=== PATIENT | male | born 1935 | race Caucasian/White ===

== ENCOUNTER 2016-06-22 12:05 | Inpatient (IN) | payer OTHER, BC ==
[~2016-06-22] VITALS: Ht 170.2 cm; Wt 76.0 kg
--- NOTE | ~2016-06-22 | HC ---
[facility] [place] [address] CONSULTATION Name: SANTA SOLIS Room #: 213-P [facility] IN M.R.#: [id number] Admission: 06/22/16 Attend Phys: Iain Villafuerte MD, Discharge: Date of : 37 Report #: [id number] THIS REPORT FOR: //name// CC: Iain Solis DATE OF SERVICE: 06/23/2016 INFECTIOUS DISEASE CONSULTATION ATTENDING PHYSICIAN: Iain Villafuerte M.D. REASON FOR CONSULTATION: Possible urosepsis. HISTORY OF PRESENT ILLNESS: The patient is a 80-year-old white man who is transferred to [facility] from [facility] Emergency Department where he is initially evaluated after having suffered a syncopal episode and trauma to the left wrist. The initial workup included a urinalysis that reveals some pyuria and bacteriuria as well as a white blood cell count of 20,300 with 13% bands, 60% neutrophils. The patient reports he has never experienced syncopal episodes before and adds that the patient had been feeling extremely cold, unable to warm up the day before admission. During the Emergency Room evaluation, patient had quite a bit of difficulty passing urine, but he was able to give us a small sample. I suspect urine culture was obtained. The patient did receive some Levaquin in the Emergency Room and when I evaluated on the computer, this patient was started on Zosyn 3.375 grams IV every 6 hours. At present, the patient is feeling significantly better almost back to par and voices no complaints, has already visited with Dr. Villafuerte who suspects the patient could be discharged home tomorrow. DRUG ALLERGIES: None listed. MEDICATIONS: The patient is on ferrous sulfate 325 mg daily, clopidogrel bisulfate 75 mg p.o. daily, amiodarone 200 mg p.o. daily, losartan 25 mg p.o. daily, prednisone 10 mg daily, gabapentin 100 mg t.i.d., KCl 20 mEq b.i.d., atorvastatin 40 mg at bedtime., metoprolol 12.5 b.i.d., docosahexaenoic acid 1000 mg p.o. b.i.d., Zosyn 3.375 grams IV every 6 hours, p.r.n. acetaminophen. PAST MEDICAL HISTORY: History of coronary artery disease, ischemic cardiomyopathy, decreased ejection fraction and status post placement of an ICD on 02/03/[address] Tyler Saldivar. The patient also relates he had an invasive rectal adenocarcinoma for which he undergoes radiation therapy. Ever since his hospitalization in 2014, the patient had significant swelling of the [address] [place] [address] CONSULTATION Name: SANTA SOLIS Room #: 213-P [facility] IN .R.#: [id number] Admission: 06/22/16 Attend Phys: Iain Villafuerte MD, Discharge: Date of : 37 Report #: [id number] scrotum. No clear explanation as to the reason for this problem is given to me today. The patient has had a flu type problem years ago and at that point in time developed what he calls arthritis and he receives treatment with steroids large doses and Dr. Solis had been tapering the prednisone, currently on 10 mg daily. The patient has also hypertension, dyslipidemia, hypothyroidism, and appendectomy. SOCIAL HISTORY: . Grown children. His son is Dr. Parker Solis. No tobacco. No alcohol. REVIEW OF SYSTEMS: Essentially noncontributory besides the syncopal episodes and joint aches and pains, some left wrist pain from the recent fall. PHYSICAL EXAMINATION: GENERAL: This is a well-developed man, not toxic looking, no distress. VITAL SIGNS: Temperature 99 on admission, pulse 73, respirations 18, BP 124/64. Height 5 feet 7 inches, weight 171.4 pounds. HEENMT: Head normocephalic, atraumatic. Pupils reactive. Mouth: No thrush. NECK: Supple, no thyromegaly. LUNGS: Clear to auscultation. HEART: S1, S2. No gallop or murmur. ABDOMEN: Soft, no masses or megaly. GENITOURINARY: Scrotum significantly swollen with edematous changes and rather symmetrical, the whole thing does not appear to be a hernia. RECTAL: Deferred. EXTREMITIES: Revealed trace pretibial edema. NEUROLOGIC: Grossly within normal limits. LABORATORY DATA: At the referring Emergency Room, the patient had a urinalysis that revealed specific gravity of 1.010, pH 5.5, 2+ leukocyte esterase. The microscopic exam revealed 6-25 wbc's per HPF, 4-25 wbc's per HPF, many bacteria. Culture was obtained, results are pending and Parker, his nurse, at [facility] today is trying to get those results. The serum lactate was normal, the WBC 20,300, hemoglobin 11.9 g/dL, platelets 118,000; decreased white blood cell count, differential reveals 60% neutrophils and 13% bands. Glucose 90, BUN 38, creatinine 1.3, sodium 142, potassium 4.3, chloride 104. CO2 of 20.9, albumin 4.7 g/dL. Liver enzymes normal. CK 3 ng/mL. Laboratory data here at [facility] reveal a BUN of 26, creatinine 1.4, alkaline phosphatase 21, SGPT 24, albumin down to 3.3 g/dL. Troponin normal. NT-proBNP elevated at 2627. The white blood cell count yesterday was 14,700 and today is 10,100. The platelets 105,000 yesterday, dropped to 85,000 today. Note is made that the patient had been thrombocytopenic previously as far back as July 2014. RADIOLOGY EVALUATION: Chest x-ray revealed cardiomegaly, a permanent pacemaker and no acute cardiopulmonary process. [facility] [address] [place] [address] CONSULTATION Name: SOLISSANTA L Room #: 213-P [facility] IN [facility].#: [id number] Admission: 06/22/16 Attend Phys: Iain Villafuerte MD, Discharge: Date of : 37 Report #: [id number] ASSESSMENT: 1. Syncopal episode of undetermined etiology, mild trauma, left wrist. 2. Possible urinary tract infection. 3. Ischemic cardiomyopathy. 4. Status post automatic implantable cardioverter-defibrillator. 5. History of rectal cancer treated with radiation therapy. 6. Leukocytosis, improving. 7. Thrombocytopenia, intermittent - chronic, undetermined etiology. SUGGESTIONS AND RECOMMENDATIONS: We will try to obtain urine culture from referring hospital and for time being, we will continue with Zosyn. We will decrease dose to 3.37 grams IV every 8 hours, suspect can switch to oral antibiotic in the morning and make plans for discharge. Dr. Villafuerte, thank you for requesting my suggestions in the care of your patient and I will continue to follow him along with you. <ELECTRONICALLY SIGNED> By: Daniel Saldivar MD 06/24/16 1104 [id number] [id number] Daniel Saldivar MD /nt
--- NOTE | ~2016-06-22 | EKG ---
[place] [address] [facility] [place] [address] ELECTROCARDIOGRAM REPORT Name: SANTA SOLIS Room #: 213-P ADM IN M.R.#: [id number] Admission: 06/22/16 Attend Phys: Iain Villafuerte MD, Discharge: Date of : 37 Report #: [id number] THIS REPORT FOR: //name// [facility] Test Date: 2016-06-22 Test Time: 17:31:18 Pat Name: SANTA SOLIS Department: Room: 213 P Gender: M Corporate Librarian: Fredis WOO : 1935 Requested By: Iain Villafuerte Order Number: [id number] MD: Tu Lawler Measurements Intervals [place] Rate: 77 P: 32 PA: 213 QRS: -21 QRSD: 125 T: 130 QT: 406 QTc: 460 Interpretive Statements Sinus rhythm Borderline prolonged PA interval Nonspecific intraventricular conduction delay Poor R-wave progression Inferior infarct, age indeterminate No previous ECG available for comparison Electronically Signed On 06-23-2016 9:13:23 CDT by Tu Lawler [email or web address] <ELECTRONICALLY SIGNED> By: Tu Lawler MD, [facility] [id number] Tu Lawler MD, [facility] /EPI
--- NOTE | ~2016-06-22 | D ---
[facility] [place] [address] DISCHARGE SUMMARY Name: SANTA SOLIS Johnna Room #: 213-P [facility] IN M.R.#: [id number] Admission: 06/22/16 Attend Phys: Iain Villafuerte MD, Discharge: 06/24/16 Date of : 37 Report #: [id number] THIS REPORT FOR: //name// CC: Iain Villafuerte [facility] COURSE: The patient is a 80-year-old male who was transferred here from [facility] Emergency Room. He looked to have impending urosepsis, a question of complex cardiac history with a moderately severe ischemic cardiomyopathy and left main and LAD stents placed in 2014. No significant recurrent heart failure issues. Borderline hypotensive. Treated with IV Levaquin in [place], then placed on IV Zosyn here initially. Infectious disease saw the patient and waiting for the urine culture from [facility], placed him on piperacillin and tazobactam and has continued him home medications; Plavix 75, losartan 25, prednisone, gabapentin, atorvastatin 40 and metoprolol tartrate 12.5 b.i.d. No further hypotension. His white count initially 22,000, now down to 10,000. His creatinine is 1.4 and potassium 4.2. H and H 10.2 and 29.6. He had a significant bandemia at the [facility], but the bands are now normal. Sed rate is 30. CRP 49.2, but these would be more of an acute phase reacting here with his impending infection. He is up and ambulating. He feels well. He is hemodynamically stable. He will be discharged to home on the home medications as I stated. The antibiotic choice will be up to infectious disease once they obtain the urine culture. DISCHARGE DIAGNOSES: 1. Urosepsis with elevated white count and bandemia. 2. Coronary artery disease. 3. Moderate ischemic cardiomyopathy with functional class II. 4. Pulmonary hypertension. 5. History of ventricular tachycardia with implantable cardioverter defibrillator placement and continued amiodarone. The pacemaker ICD was interrogated. No significant events noted. Followup is scheduled in 3 months in my office. Follow up with Dr. Saldivar for infectious disease and will call with any issues. Thank you for asking me to assist in the care of this patient. <ELECTRONICALLY SIGNED> By: Iain Villafuerte MD, FACC 06/28/16 0904 0937 1024 Iain Villafuerte MD, FACC /nt
--- NOTE | ~2016-06-22 | H ---
[facility] [place] [address] HISTORY AND PHYSICAL Name: SANTA SOLIS Room #: 213-P [facility] IN ..#: [id number] Admission: 06/22/16 Attend Phys: Iain Villafuerte MD, Discharge: 06/24/16 Date of : 37 Report #: [id number] THIS REPORT FOR: //name// CC: Iain Jones DATE OF SERVICE: 06/22/2016 HISTORY OF PRESENT ILLNESS: A 80-year-old male well known to myself, admitted here and transferred from [facility] Emergency Room where he had presented with a near syncopal event, possibly had some bowel and bladder issues, felt dizzy and presyncopal. According to his , found him down the bathroom. He had been quite stable from my perspective and is quite sick a couple of years ago with myocardial infarction and severe 3-vessel coronary disease and anterior septal infarct, EF has been 30-35% with an old inferior infarct, but he has been stable. He had drug-eluting stent placed to the left main LAD and his EF had improved. His cardiovascular status has been relatively stable. I saw him in April in the office. Echo Doppler in April revealed an EF of 30-35%, a PA pressure of 60, severe biatrial dilatation. This actually had slightly improved. Nuclear stress testing also in April did not reveal significant ischemia, some inferior septal infarct was noted and the ejection fraction was 31% by nuclear. He has been functional class 1-2. He also has a pacer defibrillator which was interrogated and doing well. He is VVI mode, I should state there is an ICD in place, no events were noted. I will re-interrogate this in the morning. HOME MEDICATIONS: Have been iron, gabapentin, potassium, prednisone, metoprolol 12.5 b.i.d., folic acid, amiodarone 200, atorvastatin 40, Plavix 75, levothyroxine, losartan 25, and omeprazole. PAST MEDICAL HISTORY: Positive for coronary artery disease with coronary stents, ischemic cardiomyopathy, history of VT, ICD placement, hypertension, hypercholesterolemia, hypothyroidism, and appendectomy. SOCIAL HISTORY: He is . His son is Eric Parker Solis in [place]. The patient lives in [place]. He has 3 children. No current alcohol or tobacco use. Quit tobacco 20 years ago. LABORATORY DATA: Laboratory work from [facility] and was 11 and 36, white count 20.3, white count repeat here was 14,000 without a bandemia. Creatinine was 1.3. Potassium was 4.3. Normal liver function test. Troponin 0.031, which is upper limits of normal for them. UA looked to have leukocytes and white cells. PHYSICAL EXAMINATION: [facility] [address] [place] [address] HISTORY AND PHYSICAL Name: SANTA SOLIS Room #: 213-P DIS IN M.R.#: [id number] Admission: 06/22/16 Attend Phys: Iain Villafuerte MD, Discharge: 06/24/16 Date of : 37 Report #: [id number] GENERAL: He is pleasant, alert. VITAL SIGNS: Pulse 70s, blood pressure 126/76. HEENT: Eyes reveal xanthelasmas. Pharynx is clear. NECK: Shows preserved upstrokes without JVD or bruits. LUNGS: Clear. CARDIOVASCULAR: Regular rate and rhythm, S1, S2, without murmur or gallop. ABDOMEN: Soft. No HSM or abdominal bruit. EXTREMITIES: Reveal trace edema. Distal pulses were intact. NEUROLOGIC: Nonfocal. SKIN: Warm and dry without xanthoma or ulcer. MUSCULOSKELETAL: No gross joint deformity. Generalized arthritic changes. IMAGING: EKG is sinus rhythm with an incomplete left bundle-branch block. ASSESSMENT: 1. Suspected early urosepsis with white count and bandemia. 2. Syncopal event, probable secondary to above. 3. Coronary artery disease complicated as stated above, but stable. 4. Moderate ischemic cardiomyopathy. 5. Moderate pulmonary hypertension. 6. History of ventricular tachycardic, on amiodarone with ICD. RECOMMENDATIONS AND PLAN: We will repeat the a.m. lab. We will continue home medications. We will ask Infectious Disease for their input, was given IV Levaquin and now started on Zosyn here. Cardiovascular status appears to be stable. I have discussed the above with his and children, and the patient appears to be fairly stable and I will also interrogate the device in the a.m. Thank you for asking us to assist in the care of this patient. <ELECTRONICALLY SIGNED> By: Iain Villafuerte MD, FACC 06/28/16 0904 52 222 Iain Villafuerte MD, FACC /nt
[~2016-06-22 12:05] MED LIST: ASPIR 8181 MG PO; ATORVASTATIN CA40 MG PO; AUGMENTIN 500-1 EACH PO; CARAFATE 1 GM TA1 G1 PO; COZAAR 25 MG TA25 M1 PO; EFFIENT10 MG PO; FLUCONAZOLE200 MG PO; GABAPENTIN 100100 MG PO; IRON325 PO; LEVOTHYROXIN0.137 M1 PO; LEVOTHYROXINE 0.15MG PO; LEXAPRO 10 MG T10 M1 PO; LOPRESSOR25 PO; LOVASTATIN 20 M20 MG PO; NEPHROCAPS SOFT1 CAP PO; NITROGLYCERIN0.4 MG SUBLING; NORCO 5-325 TA1 EACH PO; PACERONE 200 M200 M1 PO; PLAVIX 75 MG TA75 M1 PO; POTASSIUM20 PO; PREDNISONE 10 M10 MG PO; PRILOSEC40 MG PO; PROTONIX40 M1 PO; RESTORIL7.5 MG PO; TOPROL XL25 MG PO; TRAMADOL 50 MG50 MG PO; TRIAMCINOLONE A80 G2 TOP; TYLENOL325 MG PO; VENTOLIN HFA 1818 GM INH
[2016-06-22 18:23] LABS: HEMATOCRIT 32.6 % (42.0-52.0); HEMOGLOBIN 11.1 gm/dL (14.0-18.0); MCH 32.6 pg (26.0-34.0); MCHC 33.9 g/dL (28.0-37.0); PLATELET COUNT 105 thou/uL (150-400); RDW 23.4 % (10.5-14.5); WBC 14.7 thou/uL (4.0-11.0)
[2016-06-22 18:24] LABS: MANUAL DIFF YES
[2016-06-22 18:40] LABS: ABSOLUTE NEUTROPHILS 10.3 thou/uL (1.4-8.2); ANISOCYTOSIS 2+; HYPOCHROMASIA SLIGHT; TOTAL CELL COUNT 100
[2016-06-22 18:45] LABS: NT-PRO BRAIN NAT PEPTIDE 2627 pg/mL (<300); TROPONIN-I < 0.04 ng/mL (<0.04-0.07)
[2016-06-23 04:11] LABS: HEMATOCRIT 29.6 % (42.0-52.0); HEMOGLOBIN 10.2 gm/dL (14.0-18.0); MCH 32.6 pg (26.0-34.0); MCHC 34.5 g/dL (28.0-37.0); MCV 94.4 fL (80.0-100.0); RBC 3.14 mil/uL (4.50-6.00); RDW 23.1 % (10.5-14.5); WBC 10.1 thou/uL (4.0-11.0)
[2016-06-23 04:33] LABS: ALBUMIN 3.3 g/dL (3.4-5.0); CALCIUM 8.6 mg/dL (8.5-10.1); CREATININE 1.4 mg/dL (0.6-1.3); POTASSIUM 4.2 mmol/L (3.5-5.1); TOTAL PROTEIN 6.1 g/dL (6.4-8.2)
== END 2016-06-24 13:00 | disposition home or self-care (01) | DRG 872 ==
LOC: 2N 12:05
PROVIDERS: Internal Medicine Cardiovascular Disease
DX: A41.9 Sepsis, unspecified organism (principal); N17.9 Acute kidney failure, unspecified; I25.10 Atherosclerotic heart disease of native coronary artery without angina pectoris; I25.5 Ischemic cardiomyopathy; D72.829 Elevated white blood cell count, unspecified; D69.6 Thrombocytopenia, unspecified; E78.00 Pure hypercholesterolemia, unspecified; E03.9 Hypothyroidism, unspecified; I12.9 Hypertensive chronic kidney disease with stage 1 through stage 4 chronic kidney disease, or unspecified chronic kidney disease; N18.9 Chronic kidney disease, unspecified; I27.2 Other secondary pulmonary hypertension; I25.2 Old myocardial infarction; Z90.49 Acquired absence of other specified parts of digestive tract; Z87.891 Personal history of nicotine dependence; Z95.5 Presence of coronary angioplasty implant and graft; Z95.810 Presence of automatic (implantable) cardiac defibrillator
CPT/HCPCS: 10081

== ENCOUNTER 2016-08-08 10:49 | Inpatient (IN) | payer OTHER, BC ==
[~2016-08-08] VITALS: Ht 175.3 cm; Wt 74.9 kg
[2016-08-08] VITALS (26 sets, daily range): BP systolic 71–103; BP diastolic 40–93
--- NOTE | ~2016-08-08 | P ---
[facility] [place] [address] PROCEDURE REPORT Name: SOLISSANTA L Room #: 247-P [facility] IN M.R.#: [id number] Admission: 08/08/16 Attend Phys: Iain Villafuerte MD, Discharge: Date of : 37 Report #: [id number] THIS REPORT FOR: //name// CC: Iain Villafuerte MD [facility] Parker Solis DO DATE OF SERVICE: 08/12/2016 PROCEDURE: Incomplete colonoscopy. Patient of Dr. Iain Villafuerte and Dr. Parker Solis. INDICATION FOR PROCEDURE: The patient is having acute GI blood loss, thought to be secondary to post-polypectomy site. He had a colonoscopy about a week or 2 ago and several polyps were removed from multiple locations in the colon. GI bleeding scan indicated that it was most likely in the sigmoid region. Flexible sigmoidoscopy by Dr. Johnson earlier did not reveal the source of the bleeding. There was black stool adherent to the wall throughout the left colon. The patient has continued to bleed now and he was given a colon prep last night. He continues to pass dark red blood per rectum. It is thought that the actual GI bleeding site might be proximal to the sigmoid, so full colonoscopy is to be attempted. DESCRIPTION OF PROCEDURE: Informed consent for this procedure was obtained prior to the administration of any medication. The risks of the procedure which include bleeding, perforation, infection, complications of sedation and the possibility I could miss something have been explained to the patient and he has indicated his consent by signing. Propofol was slowly titrated before and during this procedure for patient comfort by the anesthesia service. Digital rectal exam did not reveal any abnormalities other than blood on the glove. There were no palpable masses. The patient does have an enlarged scrotum and an inguinal hernia. The Fujinon colonoscope was introduced through the anal sphincter and advanced gently to approximately 50 cm in the descending colon. I could not advance the scope farther despite multiple attempts to try to maneuver it forward with different positioning, etc. I think that his large inguinal hernia is the problem. The scope is apparently dipping down into this inguinal hernia and into the scrotum meaning that the sigmoid colon has probably traveled down into this hernia and no matter what I did, I was unable to get this straightened out with the scope and I could not advance the scope beyond 50 cm. So at this [facility] [address] [place] [address] PROCEDURE REPORT Name: SANTA SOLIS Room #: 247-P [facility] IN ..#: [id number] Admission: 08/08/16 Attend Phys: Iain Villafuerte MD, Discharge: Date of : 37 Report #: [id number] point, the procedure was terminated. I had cleaned out the entire left colon to 50 cm in the descending colon and I saw no evidence of any active bleeding occasional diverticulum that was not bleeding, but above this level, there was still blood coming down from above the 50 cm chace. Therefore, the scope was withdrawn slowly. No active bleeding seen, no blood in the distal colon now. In the rectum, normal mucosa, no bleeding in this area. Retroflex view, no abnormalities. The scope was withdrawn. The patient recovered in the room. He tolerated the procedure well, but he does have a large inguinal hernia and a piece of colon is in this inguinal hernia and he continues to have GI bleeding. I will consult Interventional Radiology to try to control the bleeding. He is probably going to have to have the surgical consult to repair this hernia and may be even reduce this hernia. Thank you very much once again for allowing me to participate in his care, Dr. Villafuerte and Dr. Solis. <ELECTRONICALLY SIGNED> By: Cira Burger DO 08/12/16 2149 1356 20 Cira Burger DO /nt
--- NOTE | ~2016-08-08 | S ---
[facility] [address] [place] [address] SURGICAL PATH RPT PROCEDURE Name: SANTA SOLIS Room #: 247-P ADM IN M.R.#: [id number] Admission: 08/08/16 Date of : 39 Discharge: Report #: [id number] Path Case #: [id number] PATHOLOGY REPORT COLLECTION DATE: 08/10/2016 RECEIVED DATE: 08/11/2016 SUBMITTING PHYS: Dr. Sky Johnson OTHER PHYS: Dr. Parker Villafuerte SPECIMEN(S) RECEIVED: A.Proximal sigmoid polyp * * * * * * * * * * * * FINAL DIAGNOSIS: Polyp, proximal sigmoid polyp, endoscopic biopsy: - Tubular adenoma. - Negative for high-grade dysplasia. PATHOLOGIST: Ayala Hogue M.D. REPORT ELECTRONICALLY SIGNED BY: Ayala Hogue M.D. DATE/TIME: 08/12/2016 17:11 * * * * * * * * * * * * GROSS PATHOLOGY: Received in formalin labeled "Santa Solis, proximal sigmoid," is a 1.3 x 0.7 x 0.4 cm polypoid piece of zamudio soft tissue. The margin is inked and the tissue is sectioned perpendicular to the margin and submitted in its entirety in cassette A1. (CAMILO; 08/11/2016) CLINICAL HISTORY: GI bleed INITIAL CPT CODE(S): A; 18935 Professional services performed by [facility] at [facility] [address] [place] [address] Technical services performed by [facility] at [address] [place] [address], [address], [place] [address]. [facility] [address] [place] [address] SURGICAL PATH RPT PROCEDURE Name: SANTA SOLIS Room #: 247-P ADM IN M.R.#: [id number] Admission: 08/08/16 Date of : 39 Discharge: Report #: [id number] Path Case #: [id number] [facility] [address] [address] PHONE: [phone] DIRECTOR: Hesham Mcleod M.D. * * * END OF REPORT * * *
--- NOTE | ~2016-08-08 | EKG ---
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: christine : 1935 Requested By: Tu Lawler Order Number: [id number] MD: Tu Lawler Measurements Intervals [place] Rate: 79 P: 48 UT: 200 QRS: -18 QRSD: 113 T: 155 QT: 385 QTc: 442 Interpretive Statements Sinus rhythm Inferior infarct, old Poor R wave progression Nonspecific intraventricular conduction delay Baseline wander in lead(s) V6 Compared to ECG 06/22/2016 17:31:18 no significant change was found Electronically Signed On 08-10-2016 8:41:42 CDT by Tu Lawler [email or web address] <ELECTRONICALLY SIGNED> By: Tu Lawler MD, FACC 08/10/16 0841 0638 0638 Tu Lawler MD, [facility] /EPI
--- NOTE | ~2016-08-08 | H ---
[facility] [place] [address] HISTORY AND PHYSICAL Name: SOLISSANTA Johnna Room #: 247-P [facility] IN ..#: [id number] Admission: 08/08/16 Attend Phys: Iain Villafuerte MD, Discharge: Date of : 37 Report #: [id number] THIS REPORT FOR: //name// CC: Iain Solis REASON FOR CONSULTATION: Hypotension and GI blood loss. 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 He has a history of remote medicated stenting of the left main and proximal LAD about 2 years ago. He has a history of rectal carcinoma with radiation therapy. He underwent routine colonoscopy about 2 weeks ago and several polyps were removed. His Plavix was held for several days prior to this procedure. He now presents with bright red blood per rectum. He denies chest or abdominal pain. No heart failure symptoms including orthopnea or paroxysmal nocturnal dyspnea. He was seen at [facility] this morning where his hemoglobin was 9.2. He has had a KUB that demonstrated a nonspecific bowel gas pattern. In transfer, he has had multiple episodes of bright red blood per rectum and has developed hypotension responsive to IV fluids. No history of palpitations or symptoms to suggest ICD discharge. An echocardiogram in 04/2016 demonstrated an ejection fraction in the 30%-35% range with pulmonary hypertension with a PA pressure of 65. ALLERGIES: There are no known drug allergies. MEDICATIONS: Include amiodarone 200 mg daily, iron, gabapentin 100 mg 3 times a day, levothyroxine 137 mcg daily, metoprolol 12.5 mg twice daily, Plavix 75 mg daily, prednisone, atorvastatin 40 mg daily, losartan 25 mg daily and omeprazole 40 mg daily. PAST MEDICAL HISTORY: His past history and medical records have been reviewed and include a history of rectal carcinoma, ischemic cardiomyopathy, prior ICD implant, appendectomy, prior history of urosepsis, dyslipidemia and hypothyroidism. SOCIAL HISTORY: He is . He has 3 children. Not a current smoker, he quit over 20 years ago. His son, Dr. Parker Solis, is a family practitioner in [place], [place]. FAMILY HISTORY: Noncontributory. REVIEW OF SYSTEMS: All systems negative except as that noted above. PHYSICAL EXAMINATION: GENERAL: He is a pale gentleman who is alert and responsive. [address] [address] HISTORY AND PHYSICAL Name: SANTA SOLIS Room #: 247-P [facility]#: [id number] Admission: 08/08/16 Attend Phys: Iain Villafuerte MD, Discharge: Date of : 37 Report #: [id number] VITAL SIGNS: Blood pressure is 90/70, heart rate of 60 and regular, respirations unlabored at 18. He is 5 feet 9 inches tall and 175 pounds. HEENT: There are neither xanthelasma, subcutaneous xanthomata, oral mucosal or digital cyanosis or kyphoscoliosis present. CHEST: Clear to auscultation and percussion. CARDIOVASCULAR: Regular rate and rhythm with a normal S1 and S2. Jugular venous pressure is not elevated. ABDOMEN: Soft and nontender. EXTREMITIES: Without cyanosis, clubbing or edema. Scrotal edema is noted. NEUROLOGIC: He is alert with a nonfocal exam. LABORATORY DATA: Sodium 138, potassium 4.0, creatinine 1.4, troponin of 0. White count 14.8, hemoglobin 7 and platelet count 91. BNP of 2180. Chest x-ray demonstrates normal heart size and vascularity. IMPRESSION: 1. Acute lower gastrointestinal bleeding with shock. 2. Recent colonic polypectomy, likely the bleeding source. 3. Moderately severe ischemic cardiomyopathy. 4. Chronic systolic heart failure. 5. Chronic kidney disease. 6. Dyslipidemia. 7. Prior rectal carcinoma. 8. Paroxysmal ventricular tachycardia. 9. History of prior implantable cardioverter defibrillator placement. RECOMMENDATIONS: 1. Urgent transfusion therapy. 2. Transfer to ICU. 3. GI evaluation. We will follow his cardiovascular status and volume status very closely. These issues were discussed with the patient, his and family. <ELECTRONICALLY SIGNED> By: Tu Lawler MD, FACC 08/11/16 1619 1716 180 Tu Lawler MD, FACC /nt
--- NOTE | ~2016-08-08 | HC ---
[facility] [place] [address] CONSULTATION Name: SANTA SOLIS Room #: 211-P [facility] IN M.R.#: [id number] Admission: 08/08/16 Attend Phys: Iain Villafuerte MD, Discharge: 08/16/16 Date of : 37 Report #: [id number] THIS REPORT FOR: //name// CC: Iain Villafuerte MD [facility] Parker Solis DO REASON FOR CONSULTATION: A large scrotal hernia with colon. GI bleeding, likely post-polypectomy 2 weeks ago. HISTORY OF PRESENT ILLNESS: The patient is a 80-year-old father of Dr. Parker Solis, physician down in [place], [place]. The patient came in feeling fainty on 08/08/2016. The patient had a low blood pressure. He had a colonoscopy on 07/25/2016 at [facility] with Dr. Ryan. Several polyps were removed. The patient is on Plavix. He did have an attempted colonoscopy with Dr. Johnson a couple of days ago that was not successful due to poor prep. The patient then had a repeat scope with Dr. Burger today and Dr. Burger got to 50 cm and could not get beyond a narrowing area. This is felt to be within his left inguinal hernia. I was consulted to evaluate the hernia. The patient has had this hernia for a long time. He says he used to be able to push it back in and recently has just been out and he has not been able to push it back in any more. The patient has required about 8 units of blood so far. Did have a bleed just recently. On exam, the patient does have large scrotal inguinal hernia, bilateral, the right side is smaller. The left side is quite large. I did try to reduce this, but could reduce only a part of it. The scrotal area is not red. He is not particularly tender. He does allow me to push on it fairly hard, but the chronic nature of this prevents me from reducing it. IMPRESSION AND PLAN: The patient with a large left inguinal hernia extending into the scrotum, right inguinal hernia also. I agree that this is containing sigmoid colon and the patient enough that not able to be scoped. Surprised that Dr. Ryan was able to scope it 2 weeks ago. This hernia is chronically out. I do not think there is any acute tissue compromise in this area. The patient has been told in the past that he was not a candidate for hernia repair, but I think with it being so large, he is looking at more and more problems from this. At this point, I will go ahead and follow to make sure that things are stable and there is no evidence of strangulation. May need a CT scan to look what is up inside and determine how much irritation there is there. I think he probably could have the hernia repaired with IV sedation and local anesthetic. We will discuss that with Dr. Villafuerte. <ELECTRONICALLY SIGNED> By: Lobito Wellington MD 08/19/16 1713 1147 1905 Lobito Wellington MD /nt
--- NOTE | ~2016-08-08 | HC ---
[facility] [place] [address] CONSULTATION Name: IRMASANTA Johnna Room #: 211-P [facility]..#: [id number] Admission: 08/08/16 Attend Phys: Iain Villafuerte MD, Discharge: 08/16/16 Date of : 37 Report #: [id number] THIS REPORT FOR: //name// CC: Iain Solis HISTORY OF PRESENT ILLNESS: The patient is a 80-year-old white male who was admitted with bright red blood per rectum. 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 He was admitted with hypotension, noted to have lower gastrointestinal bleed, acute with shock. He was seen by gastroenterology and underwent colonoscopy, which showed a post-polypectomy bleed. He has received multiple blood transfusions. He also was noted to have a large left inguinal hernia with colon, and there were plans for him to undergo surgical intervention for this by Dr. Wellington when he is stronger. We are seeing him in rehabilitation medicine consultation. PAST MEDICAL HISTORY: Includes rectal CA with radiation therapy, prior ICD, history of urosepsis, moderately severe ischemic cardiomyopathy, proximal V-tach with history of ICD as noted above. Chronic kidney disease. MEDICATIONS: Please see the full medication listing. ALLERGIES: No known drug allergies. FAMILY HISTORY: Noncontributory. SOCIAL HISTORY: Lives in a house with his , 3 steps in, used a cane when outside, but otherwise did not use any gait aids in the house. He notes that he only typically walks short distances out in the community. His son is Dr. Parker Solis, a family physician in [place], [place]. HABITS: Not a current smoker, quit over 20 years ago. REVIEW OF SYSTEMS: Did not offer any current complaints of chest pain, shortness of breath or abdominal discomfort. 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 No other focal extremity pain complaints. Did not offer any complaints of headache or other neurologic complaints. PHYSICAL EXAMINATION: GENERAL: He is a pleasant 80-year-old white male in no obvious distress. VITAL SIGNS: Last recorded temperature is 98.9, pulse 71, respirations 16, and blood pressure 116/68. NEUROLOGIC: He is alert, oriented, and appropriate, appears to be a good historian. Facies are symmetric. EXTREMITIES: He has functional range of motion of [place] [address] CONSULTATION Name: SANTA SOLIS Room #: [address] [place] [address] [place] [facility].#: [id number] Admission: 08/08/16 Attend Phys: Iain Villafuerte MD, Discharge: 08/16/16 Date of : 37 Report #: [id number] strength grade 4+/5. DTRs are trace to 1. In his lower extremities, there is no focal calf swelling. He does have some chronic arthritic changes of that left lower extremity with some mild discomfort with testing. I would grade his strength of that left lower extremity at a grade 4-/5, DTRs are trace to 1. Right lower extremity strength is grade 4/5, DTRs are trace to 1. He has contact guard for sit to stand and ambulated 10 feet contact guard with a front-wheeled walker. ASSESSMENT: A 80-year-old white male with the following problem list: 1. Medical complexity with generalized debilitation. 2. Acute lower gastrointestinal bleeding with shock, noted to have post-polypectomy bleeding. 3. Large inguinal hernia with colon with recommendations for repair when stronger. 4. Past history of rectal cancer with radiation therapy. 5. Moderately severe ischemic cardiomyopathy. 6. Chronic systolic heart failure. 7. Chronic kidney disease. 8. Hypertension. 9. History of prior implantable cardioverter-defibrillator. PLAN: We will see how he does in therapies. We assess his tolerance and rehab therapy needs. We will be glad to follow along with you regarding his rehabilitation therapy needs. We will see how he does in therapies. Discussion with the patient and his . We will follow along with you. <ELECTRONICALLY SIGNED> By: Rambo Shabazz MD 08/18/16 1528 1059 0003 Rambo Shabazz MD /nt
--- NOTE | ~2016-08-08 | P ---
[facility] [place] [address] PROCEDURE REPORT Name: SOLISSANTA Johnna Room #: 211-P [facility] IN ..#: [id number] Admission: 08/08/16 Attend Phys: Iain Villafuerte MD, Discharge: Date of : 37 Report #: [id number] THIS REPORT FOR: //name// CC: Dr. Shelby Solis BRIEF HISTORY: The patient is a 80-year-old male who underwent colonoscopy by Dr. Ryan at [facility] nearly 2 weeks ago and multiple polyps were removed and he presented to [facility] with GI bleeding, requiring transfusion. Bleeding scan revealed activity in the distal sigmoid and rectum. It is noted that he did have a polyp removed from this region. PREOPERATIVE DIAGNOSIS: Post-polypectomy bleed. POSTOPERATIVE DIAGNOSES: 1. Post-polypectomy bleed. 2. An 8-mm sessile polyp, proximal sigmoid colon. MEDICATIONS: Deep sedation with propofol per anesthesia. SPECIMEN: Polyp from proximal sigmoid. ESTIMATED BLOOD LOSS: 3 mL. PROCEDURE: Flexible sigmoidoscopy to the distal descending colon with snare polypectomy. FINDINGS: Prior to propofol sedation, procedure of colonoscopy discussed with the patient as well as potential risks and its complications. He indicates he understands and desires that we proceed. DESCRIPTION OF PROCEDURE: With the patient in the left lateral decubitus position, digital examination was completed, which revealed no abnormalities. Subsequently, the [email or web address] video colonoscope was introduced into the rectum, advanced under direct vision to the distal descending colon. Unfortunately, the prep was extremely poor in spite of the fact that the patient had 3 tap water prior to the procedure. The mucosa was covered with thick blackish material. We carefully advanced the scope and irrigating as well as possible and we were able to observe some mucosa, but not all the material could be removed. I might point out that upon introduction of the scope, all we found was dark blackish material. Red blood was not seen. We were able to advance the scope into the distal descending colon. At this point, it was somewhat blackish material. We could no longer see the lumen. It was felt to be too risky to further advance the scope, especially since active bleeding was not encountered. From this point, we slowly withdrew the scope. We were able to clean up some of the mucosa, but all the black material could not be removed. [address] [address] PROCEDURE REPORT Name: SANTA SOLIS Room #: 211-P [facility] IN [facility]#: [id number] Admission: 08/08/16 Attend Phys: Iain Villafuerte MD, Discharge: Date of : 37 Report #: [id number] In the proximal sigmoid colon, an 8-mm sessile polyp was seen and removed by cold snare polypectomy. There was good hemostasis. The sigmoid colon was carefully examined. I could not find a polypectomy site. However, again, there was considerable limitation of the prep. It was felt that the prep was too poor to make further attempts to visualize the polypectomy site. The scope was withdrawn. The patient tolerated the procedure well. DISPOSITION: Post-polypectomy bleeding. I did not find evidence of active bleeding. He did have a polyp, which was removed as described above. It had a benign appearance. We will follow up on the path. In addition, we will discuss with the patient and family members just continue with observation at this time versus full colonoscopy prep with attempts to further identify the sites. However, his bleeding may have resolved as of this point in time. We will continue to monitor hemoglobin. <ELECTRONICALLY SIGNED> By: Sky Johnson MD 08/14/16 1228 1642 2255 Sky Johnson MD /nt
--- NOTE | ~2016-08-08 | D ---
"[facility] [place] [address] DISCHARGE SUMMARY Name: SANTA KC Room #: 211-P [facility] IN ..#: [id number] Admission: 08/08/16 Attend Phys: Iain Villafuerte MD, Discharge: Date of : 37 Report #: [id number] THIS REPORT FOR: //name// CC: Iain Kc DO HOSPITAL COURSE: The patient is a 80-year-old male, well known to myself with a history of stable coronary artery disease, who is admitted with a significant acute blood loss anemia. He had a polypectomy 2 weeks prior and restarted Plavix immediately and then subsequently had been bleeding for the last couple of days prior to his admission. Very difficult hospital course here, requiring a total of 8 units of blood transfused. He finally has hemodynamically remained stable and is better. No transfusion now in 48 hours with hemoglobin increasing from 8.4 to 8.7 to 9.1. He will remain off of any antiplatelet therapy at least for the time being. We will restart his home medications, which he is actually better on. These include iron, amiodarone 200 mg a day, levothyroxine, Protonix, gabapentin, metoprolol tartrate 12.5 b.i.d. and magnesium. Low-fat, low-sodium, cholesterol diet. He may slowly resume regular aerobic activity. We will have serial hemoglobin checked in 72 hours. He will follow up with Dr. Kc in [place], [place]. He is scheduled to see me, 10/21, with the device check and followup in my office at 01:30 and will call with any issues. DISCHARGE DIAGNOSES: 1. Acute blood loss anemia secondary to gastrointestinal bleed. 2. Coronary artery disease with history of prior left main and left anterior descending stents.| 3. Moderate ischemic cardiomyopathy, functional class 1-2, ejection fraction 30%. 4. Hypertension. 5. Hypercholesterolemia. 6. Hypertension. 7. History of implantable cardioverter defibrillator placement. 8. Hypothyroidism. RECOMMENDATIONS AND PLAN: As stated above. We will obtain serial hemoglobin, slowly increase activity. Thank you for asking me to assist in the care of this patient. By: 0929 1049 Iian Villafuerte MD, FACC /nt"
--- NOTE | ~2016-08-08 | EKG ---
[place] [address] [place] [address] ELECTROCARDIOGRAM REPORT Name: YOSELIN SOLISSTPEHAN Oropeza Room #: 247-P ADM IN M.R.#: [id number] Admission: 08/08/16 Attend Phys: Iain Villafuerte MD, Discharge: Date of : 37 Report #: [id number] THIS REPORT FOR: //name// [facility] Test Date: 2016-08-08 Test Time: 15:17:55 Pat Name: SANTA SOLIS Department: Room: 247 P Gender: M Manager Financial Reporting: THAD : 1935 Requested By: Tu Lawler Order Number: [id number] MD: Tu Lawler Measurements Intervals Melba Rate: 67 P: 30 WI: 208 QRS: -24 QRSD: 112 T: 79 QT: 437 QTc: 462 Interpretive Statements Sinus rhythm LVH with IVCD and secondary repol abnrm Inferior infarct, old Compared to ECG 06/22/2016 17:31:18 no significant change was found Electronically Signed On 08-10-2016 8:33:44 CDT by Tu Lawler [email or web address] <ELECTRONICALLY SIGNED> By: Tu Lawler MD, [facility] 08/10/16 0833 1517 1517 Tu Lawler MD, [facility] /EPI
--- NOTE | ~2016-08-08 | HC ---
[facility] [place] [address] CONSULTATION Name: IRMASANTA Johnna Room #: 247-P [facility] IN ..#: [id number] Admission: 08/08/16 Attend Phys: Iain Villafuerte MD, Discharge: Date of : 37 Report #: [id number] THIS REPORT FOR: //name// CC: Iain Solis REASON FOR CONSULTATION: Acute lower GI bleed. HISTORY OF PRESENT ILLNESS: The patient is a 80-year-old white male transferred from [facility] Emergency Room to [facility] with acute GI bleed. History is obtained from the patient and his son, Parker SolisHardik. The patient reports that at 6:00 a.m. this morning, he had a bowel movement and with automatic flush did not determine if there were any signs of blood in the stool at that time. He had 2 subsequent very loose bowel movements, which were his first evidence of bleeding. He had another bloody bowel movement en route to the hospital and did have subsequent bleeding in the ICU with a larger volume at 1430. Initial hemoglobin at [facility] at 8:20 was 9.2, but after arrival to [facility], hemoglobin was 7.0. He is currently receiving his first unit of packed red blood cells. The patient had undergone a colonoscopy at [facility] on 07/28/[address] Ryan due to his personal history of rectal cancer with endoscopic mucosal resection and radiation treatment. At his procedure, a 9-mm polyp was removed from the proximal ascending colon by hot snare and a hemostatic clip was placed, a 7-mm polyp was removed from the distal sigmoid colon and removed by hot snare, a 7-mm sessile polyp was removed from the transverse colon by hot snare, a 7-mm polyp was removed from the descending colon removed by hot snare and a 5-mm polyp was removed from the sigmoid colon by hot snare. A 12-mm post-polypectomy scar was found in the rectum. PAST MEDICAL HISTORY: He does have coronary artery disease with previous stent placement. He was evaluated by Dr. Villafuerte on 06/28/2016 and previous cardiac evaluation was well reviewed at that time. He does have a history of ischemic cardiomyopathy with an EF of 30%-35%. He has a history of ventricular tachycardia and has undergone previous ICD placement. His other medical problems include hypertension, hyperlipidemia, hypothyroidism and a personal history of rectal cancer. He was diagnosed with a rectal cancer in 08/2014 and underwent endoscopic mucosal resection and radiation treatment. HOME MEDICATIONS: Amiodarone 200 mg per day, atorvastatin 40 mg at bedtime, ferrous sulfate 1 tablet each day, gabapentin 100 mg 3 times per day, levothyroxine 137 mcg per day, metoprolol 25 mg 1/2 tablet twice per day, nitroglycerin as needed, Plavix 75 mg per day, potassium chloride 20 mEq twice per day, prednisone 10 mg per day, Edarbi 40 mg per day and Virt-Jb plus oral each day. ALLERGIES: No known drug allergies. [address] [address] CONSULTATION Name: SANTA SOLIS Room #: 247-P [facility] IN .Eric#: [id number] Admission: 08/08/16 Attend Phys: Iain Villafuerte MD, Discharge: Date of : 37 Report #: [id number] SOCIAL HISTORY: Does not smoke cigarettes or drink alcohol. He has a very supportive family including a son who is a physician. REVIEW OF SYSTEMS: The patient denies any fevers or chills. Prior to hospitalization, he had no dizziness or fainting, but did have a near syncopal episode with drop in blood pressure in the cardiac care unit. He denies chest pain, shortness of breath, wheezing or coughing. He has no focal abdominal pain. He has mild peripheral edema. PHYSICAL EXAMINATION: GENERAL: He appears alert and in no acute distress at rest, but pale and mildly sweaty. VITAL SIGNS: Afebrile. EYES: He has no scleral icterus. NECK: Supple, without lymphadenopathy or thyromegaly. CARDIOVASCULAR: Heart rate and rhythm regular. ICD is present, left subclavicular. LUNGS: Clear to auscultation. ABDOMEN: Soft, mildly obese with no obvious hepatosplenomegaly or palpable mass. He exhibits no focal tenderness to palpation. EXTREMITIES: He does have 1+ peripheral edema. LABORATORY STUDIES: On 08/08, white blood cell count 14.8, hemoglobin 7.0 and platelet count 91,000. Metabolic profile includes chloride 108, BUN 34 and creatinine 1.4. Total bilirubin 0.5, AST 21, ALT 22 and alkaline phosphatase 20. Serum troponin level was 0.04. Serum albumin was decreased at 2.9. IMPRESSION: 1. Acute hematochezia, likely related to delayed post-polypectomy bleed. 2. Anemia. 3. Coagulopathy with maintenance on aspirin and Plavix. 4. Thrombocytopenia. 5. Coronary artery disease with previous stent placement. 6. Cardiomyopathy with previous EF documented at 30% - 35%. 7. Personal history of rectal cancer. RECOMMENDATIONS: 1. Hold Plavix. 2. Transfuse 2 units of packed red blood cells with IV Lasix 40 mg between units. 3. If continued signs of bleeding, we will obtain nuclear medicine bleeding scan. [address] [address] CONSULTATION Name: SANTA SOLIS Room #: 247-P [facility] IN M.R.#: [id number] Admission: 08/08/16 Attend Phys: Iain Villafuerte MD, Discharge: Date of : 37 Report #: [id number] 4. If continued bleeding, a repeat colonoscopy may be considered with Endoclip placement to control post-polypectomy bleed, if present. <ELECTRONICALLY SIGNED> By: Gary Russell MD 08/13/16 0818 1728 2359 Marcus Galarza MD /nt
[2016-08-08 14:29] LABS: HEMATOCRIT 20.8 % (42.0-52.0); MCH 32.5 pg (26.0-34.0); MCHC 33.7 g/dL (28.0-37.0); MCV 96.4 fL (80.0-100.0); RBC 2.16 mil/uL (4.50-6.00); RDW 21.3 % (10.5-14.5); WBC 14.8 thou/uL (4.0-11.0)
[2016-08-08 14:36] LABS: CALCIUM 7.2 mg/dL (8.5-10.1); CREATININE 1.4 mg/dL (0.7-1.3)
[2016-08-08 14:43] LABS: ALBUMIN 2.9 g/dL (3.4-5.0); TOTAL BILIRUBIN 0.5 mg/dL (<0.1-1.0); TOTAL PROTEIN 5.4 g/dL (6.4-8.2); TROPONIN-I 0.04 ng/mL (<0.04-0.07)
[2016-08-08 21:57] LABS: HEMATOCRIT 24.6 % (42.0-52.0); HEMOGLOBIN 8.5 gm/dL (14.0-18.0)
[2016-08-09] VITALS (61 sets, daily range): BP systolic 71–131; BP diastolic 36–64
[2016-08-09 04:30] LABS: HEMATOCRIT 22.1 % (42.0-52.0); HEMOGLOBIN 7.6 gm/dL (14.0-18.0); MCH 30.6 pg (26.0-34.0); MCHC 34.1 g/dL (28.0-37.0); RBC 2.47 mil/uL (4.50-6.00); RDW 23.1 % (10.5-14.5); WBC 18.6 thou/uL (4.0-11.0)
[2016-08-09 04:33] LABS: MCV 89.6 fL (80.0-100.0)
[2016-08-09 04:34] LABS: CALCIUM 7.4 mg/dL (8.5-10.1); CREATININE 1.7 mg/dL (0.7-1.3); POTASSIUM 4.8 mmol/L (3.5-5.1)
[2016-08-09 15:20] LABS: HEMATOCRIT 27.7 % (42.0-52.0); HEMOGLOBIN 9.5 gm/dL (14.0-18.0)
[2016-08-09 15:31] LABS: CALCIUM 7.3 mg/dL (8.5-10.1); CREATININE 1.7 mg/dL (0.7-1.3); MAGNESIUM 1.5 mg/dL (1.8-2.4); POTASSIUM 4.5 mmol/L (3.5-5.1)
[2016-08-10] VITALS (113 sets, daily range): BP systolic 78–148; BP diastolic 36–109
[2016-08-10 04:37] LABS: HEMATOCRIT 24.6 % (42.0-52.0); HEMOGLOBIN 8.3 gm/dL (14.0-18.0); MCH 29.8 pg (26.0-34.0); MCHC 33.9 g/dL (28.0-37.0); MCV 87.9 fL (80.0-100.0); RBC 2.8 mil/uL (4.50-6.00); RDW 20.1 % (10.5-14.5); WBC 11.5 thou/uL (4.0-11.0)
[2016-08-10 04:56] LABS: ALBUMIN 2.6 g/dL (3.4-5.0); CALCIUM 7.7 mg/dL (8.5-10.1); CREATININE 1.5 mg/dL (0.7-1.3); POTASSIUM 4.2 mmol/L (3.5-5.1); TOTAL BILIRUBIN 0.7 mg/dL (<0.1-1.0)
[2016-08-10 10:15] LABS: HEMATOCRIT 25.4 % (42.0-52.0); HEMOGLOBIN 8.7 gm/dL (14.0-18.0)
[2016-08-11] VITALS (42 sets, daily range): BP systolic 87–119; BP diastolic 40–57
[2016-08-11 04:42] LABS: HEMATOCRIT 22.7 % (42.0-52.0); HEMOGLOBIN 7.7 gm/dL (14.0-18.0); MCHC 33.8 g/dL (28.0-37.0); RBC 2.55 mil/uL (4.50-6.00); RDW 20.1 % (10.5-14.5); WBC 14.4 thou/uL (4.0-11.0)
[2016-08-11 08:33] LABS: CALCIUM 7.2 mg/dL (8.5-10.1); CREATININE 1.2 mg/dL (0.7-1.3); POTASSIUM 4.2 mmol/L (3.5-5.1)
[2016-08-11 14:06] LABS: HEMATOCRIT 23.4 % (42.0-52.0); MCH 30.1 pg (26.0-34.0); MCHC 34.1 g/dL (28.0-37.0); MCV 88.2 fL (80.0-100.0); RBC 2.65 mil/uL (4.50-6.00); RDW 17.8 % (10.5-14.5); WBC 16.6 thou/uL (4.0-11.0)
[2016-08-11 18:23] LABS: HEMATOCRIT 22.9 % (42.0-52.0); HEMOGLOBIN 7.6 gm/dL (14.0-18.0)
[2016-08-11 22:05] LABS: HEMATOCRIT 26.5 % (42.0-52.0); HEMOGLOBIN 8.8 gm/dL (14.0-18.0)
[2016-08-12] VITALS (70 sets, daily range): BP systolic 73–195; BP diastolic 35–180
[2016-08-12 04:00] LABS: HEMATOCRIT 24.1 % (42.0-52.0); HEMOGLOBIN 8.3 gm/dL (14.0-18.0)
[2016-08-12 11:24] LABS: HEMATOCRIT 24.2 % (42.0-52.0)
[2016-08-12 23:24] LABS: HEMATOCRIT 22.1 % (42.0-52.0); HEMOGLOBIN 7.4 gm/dL (14.0-18.0)
[2016-08-13] VITALS (16 sets, daily range): BP systolic 91–132; BP diastolic 36–67
[2016-08-13 05:42] LABS: HEMATOCRIT 24.6 % (42.0-52.0); HEMOGLOBIN 8.4 gm/dL (14.0-18.0)
[2016-08-13 09:46] LABS: HEMATOCRIT 26.4 % (42.0-52.0); HEMOGLOBIN 8.7 gm/dL (14.0-18.0)
[2016-08-13 13:46] LABS: HEMATOCRIT 24.6 % (42.0-52.0); HEMOGLOBIN 8.5 gm/dL (14.0-18.0)
[2016-08-13 17:47] LABS: HEMATOCRIT 24.2 % (42.0-52.0); HEMOGLOBIN 8.1 gm/dL (14.0-18.0)
[2016-08-13 22:07] LABS: HEMATOCRIT 23.3 % (42.0-52.0); HEMOGLOBIN 8.1 gm/dL (14.0-18.0)
[2016-08-14 01:44] LABS: HEMATOCRIT 21.3 % (42.0-52.0); HEMOGLOBIN 7.6 gm/dL (14.0-18.0)
[2016-08-14 02:47] VITALS: BP 102/57; BP 104/56; BP 106/58
[2016-08-14 03:15] VITALS: BP 104/56
[2016-08-14 07:15] VITALS: BP 106/48
[2016-08-14 08:53] LABS: HEMATOCRIT 24.8 % (42.0-52.0); HEMOGLOBIN 8.7 gm/dL (14.0-18.0)
[2016-08-14 11:07] VITALS: BP 106/50
[2016-08-14 14:43] VITALS: BP 106/48
[2016-08-14 14:52] LABS: HEMATOCRIT 24.6 % (42.0-52.0); HEMOGLOBIN 8.4 gm/dL (14.0-18.0)
[2016-08-14 20:25] VITALS: BP 114/55
[2016-08-14 21:16] LABS: HEMATOCRIT 24.6 % (42.0-52.0); HEMOGLOBIN 8.6 gm/dL (14.0-18.0)
[2016-08-15 03:04] LABS: HEMATOCRIT 25.8 % (42.0-52.0); HEMOGLOBIN 8.7 gm/dL (14.0-18.0); MCH 28.5 pg (26.0-34.0); MCHC 33.6 g/dL (28.0-37.0); MCV 84.9 fL (80.0-100.0); RBC 3.04 mil/uL (4.50-6.00); RDW 18.3 % (10.5-14.5); WBC 10.8 thou/uL (4.0-11.0)
[2016-08-15 04:03] VITALS: BP 117/60
[2016-08-15 06:51] VITALS: BP 110/80
[2016-08-15 12:00] VITALS: BP 113/58
[2016-08-15 16:01] VITALS: BP 120/64
[2016-08-15 19:32] LABS: HEMATOCRIT 26.3 % (42.0-52.0); HEMOGLOBIN 8.8 gm/dL (14.0-18.0)
[2016-08-15 20:21] VITALS: BP 107/64
[2016-08-16 04:15] VITALS: BP 98/66
[2016-08-16 07:00] VITALS: BP 116/68
[2016-08-16 07:26] LABS: HEMATOCRIT 26.3 % (42.0-52.0); HEMOGLOBIN 9.1 gm/dL (14.0-18.0)
[2016-08-16 16:37] VITALS: BP 116/68
== END 2016-08-16 18:00 | disposition home or self-care (01) | DRG 377 ==
LOC: 2N 10:49 → ICU 13:03 → 2N 13:03 → ICU 18:20 → 2N 08-13 15:21
PROVIDERS: Internal Medicine; Internal Medicine Cardiovascular Disease; Internal Medicine Gastroenterology; Nurse Practitioner Adult Health; Specialist
PROC: 30233N1 Transfusion of Nonautologous Red Blood Cells into Peripheral Vein, Percutaneous Approach (ICD-10-PCS; 2016-08-09)
PROC: 0W3P8ZZ Control Bleeding in Gastrointestinal Tract, Via Natural or Artificial Opening Endoscopic (ICD-10-PCS; principal; 2016-08-10)
PROC: 0DBN8ZZ Excision of Sigmoid Colon, Via Natural or Artificial Opening Endoscopic (ICD-10-PCS; principal; 2016-08-10)
PROC: 02HV33Z Insertion of Infusion Device into Superior Vena Cava, Percutaneous Approach (ICD-10-PCS; 2016-08-12)
PROC: B548ZZA Ultrasonography of Superior Vena Cava, Guidance (ICD-10-PCS; 2016-08-12)
PROC: 0DJD8ZZ Inspection of Lower Intestinal Tract, Via Natural or Artificial Opening Endoscopic (ICD-10-PCS; 2016-08-12)
DX: K92.2 Gastrointestinal hemorrhage, unspecified (principal); R57.8 Other shock; I50.22 Chronic systolic (congestive) heart failure; D68.9 Coagulation defect, unspecified; I13.0 Hypertensive heart and chronic kidney disease with heart failure and stage 1 through stage 4 chronic kidney disease, or unspecified chronic kidney disease; D62 Acute posthemorrhagic anemia; I47.2 Ventricular tachycardia; K91.841 Postprocedural hemorrhage of a digestive system organ or structure following other procedure; I25.10 Atherosclerotic heart disease of native coronary artery without angina pectoris; I25.5 Ischemic cardiomyopathy; E78.5 Hyperlipidemia, unspecified; D69.6 Thrombocytopenia, unspecified; N18.9 Chronic kidney disease, unspecified; K40.90 Unilateral inguinal hernia, without obstruction or gangrene, not specified as recurrent; E78.00 Pure hypercholesterolemia, unspecified; E03.9 Hypothyroidism, unspecified; D72.829 Elevated white blood cell count, unspecified; E83.42 Hypomagnesemia; Z79.899 Other long term (current) drug therapy; Z95.5 Presence of coronary angioplasty implant and graft; Z95.810 Presence of automatic (implantable) cardiac defibrillator; Z85.048 Personal history of other malignant neoplasm of rectum, rectosigmoid junction, and anus; Z90.49 Acquired absence of other specified parts of digestive tract
CPT/HCPCS: 10078; 10081; 27001; 62110; 62900; 85076

== ENCOUNTER 2017-02-21 11:23 | Inpatient (IN) | payer OTHER, BC ==
[~2017-02-21] VITALS: Ht 170.2 cm; Wt 74.8 kg
--- NOTE | ~2017-02-21 | HC ---
[facility] [place] [address] CONSULTATION Name: SANTA SOLIS Room #: 215-P [facility] IN ..#: [id number] Admission: 02/21/17 Attend Phys: Iain Villafuerte MD, Discharge: Date of : 39 Report #: [id number] THIS REPORT FOR: //name// CC: Iain Solis DATE OF SERVICE: 02/21/2017 TYPE OF REPORT: Infectious diseases consultation. REASON FOR CONSULTATION: I was asked to evaluate concerning possible sepsis. HISTORY OF PRESENT ILLNESS: The patient is a 81-year-old recently discharged from the acute rehabilitation unit on 02/12/2017 after his hospitalization on 01/23/2017 with cardiogenic and septic shock with acute renal failure, DIC, shock liver. He did have evidence of urinary tract infection. No cultures were identified. Initial cultures were done at [facility]. No urine culture was obtained. Following his hospitalization and then in rehabilitation, he had a urine culture that grew Kaye albicans. For this, he was treated with fluconazole. He was maintained on dialysis via right chest dialysis catheter. [place] at [place] [facility], he fell this morning lacerating his right scalp. No other trauma noted. He initially was transported to [facility], now at [facility]. No documented fever and hemodynamically he has been stable. He is alert and cooperative. He is on 2 liters of oxygen per nasal cannula. PAST MEDICAL HISTORY, FAMILY HISTORY, SOCIAL HISTORY: Unchanged from his previous consultation. ALLERGIES: None. MEDICATIONS: As noted on his MAR, including his fluconazole. He was given a dose of Zosyn in the Emergency Room at [facility]. REVIEW OF SYSTEMS: He has had no cough or sputum production. No nausea, vomiting or diarrhea. He does have an indwelling Guzman catheter. PHYSICAL EXAMINATION: VITAL SIGNS: Temperature is 99.3, hemodynamically stable. He is alert and cooperative and pleasant, in no acute distress. HEENT: Remarkable for right scalp laceration, which I sutured. He had some dry blood in his mouth. NECK: Supple. LUNGS: Clear. HEART: Regular, without murmur. ABDOMEN: Right chest catheter site was unremarkable. Abdomen had mild [facility] [address] [place] [address] CONSULTATION Name: SANTA SOLIS Room #: 215-P [facility] IN [facility]#: [id number] Admission: 02/21/17 Attend Phys: Iain Villafuerte MD, Discharge: Date of : 37 Report #: [id number] distention. He had a large inguinal hernia with a very large scrotal sac, this was unchanged from previous. He had indwelling Guzman catheter. EXTREMITIES: 1+ edema. NEUROLOGIC: Nonfocal. LABORATORY DATA: Review of the records sent over from [facility], no specifics were available. He did have cultures obtained and imaging studies. IMPRESSION: Fall from chair earlier today with right head laceration. I do not get a sense that we had a complete syncopal episode, but this has not been confirmed. Although the patient was alert and cooperative, he was not a very good historian. Emergency Room record did not clarify this issue. He is now on the monitor. It is suggested that he had no loss of consciousness with this event. IMPRESSION: A 81-year-old with a fall causing a laceration to his right scalp. This is in the setting of cardiomyopathy, acute on chronic renal failure. Need to evaluate further for underlying infectious cause. We will check blood cultures, urine culture, followup chest x-ray and laboratory studies including CBC and chemistry. He will remain on broad antibiotic coverage pending further results. <ELECTRONICALLY SIGNED> By: Pepe Murphy MD 02/22/17 2053 [id number] [id number] Pepe Murhpy MD /nt
--- NOTE | ~2017-02-21 | HC ---
[facility] [place] [address] CONSULTATION Name: SANTA SOLIS Johnna Room #: 215-P [facility] IN M.R.#: [id number] Admission: 02/21/17 Attend Phys: Iain Villafuerte MD, Discharge: Date of : 39 Report #: [id number] THIS REPORT FOR: //name// CC: Iain Solis DATE OF SERVICE: 02/21/2017 ATTENDING PHYSICIAN: Iain Villafuerte MD [facility] REASON FOR CONSULTATION: Acute kidney injury. HISTORY OF PRESENT ILLNESS: This patient is well known to us, was hospitalized at this hospital between 01/23 and 02/12 with acute kidney injury after severe sepsis. He was eventually discharged to an extended care facility in the region of his home and has been dialyzing 3 times weekly. This is in ____ [place]. He fell and lacerated his head, was taken to the Emergency Room, but also had an elevated lactic acid and it was felt that he might have further illness and he was transferred here to [facility]. PAST MEDICAL HISTORY: Rather extensive. He has a recent admission with septic shock and severe sepsis, thought to be due probably to a urinary tract obstruction and infection although he had been treated with antibiotics in [place], [place], and it was unclear as to what the actual infection was as nothing grew out of his urine here. He also had possible pneumonia that could have been the culprit. In any event, he was quite ill. He was on BiPAP in the ICU, quite septic, on pressors, eventually recovered, underwent dialysis, continued on dialysis, was oligoanuric for his 19 days at this hospital. Past medical history also remarkable for ischemic cardiomyopathy, 2 previous coronary stents, a previous major myocardial infarction, intermittent obstructive uropathy, massive GI bleed requiring units of blood transfusion, history of rectal carcinoma, appendectomy, prior pneumonia. 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 No current smoking history. HOME MEDICATIONS: We have an incomplete list including albuterol inhaler, atorvastatin, citalopram, famotidine, Nephrocaps, levothyroxine, tamsulosin. He also had an indwelling Guzman catheter. ALLERGIES: No known drug allergies. REVIEW OF SYSTEMS: GENERAL: He is weak and somewhat lethargic and not a best historian this evening. [facility] [address] [place] [address] CONSULTATION Name: SANTA SOLIS Room #: 215-P [facility] IN .R.#: [id number] Admission: 02/21/17 Attend Phys: Iain Villafuerte MD, Discharge: Date of : 37 Report #: [id number] EYES: Reasonably good. ENT: He says he is swallowing okay, but does not have much appetite. ENDOCRINE: No diabetes or thyroid disease. RESPIRATORY: Denies current shortness of breath or pleuritic pain at rest. No hemoptysis. CARDIAC: He is not having any chest pain or palpitations. No swelling in his legs. Of note, he was quite swollen on admission here and the swelling is resolved. The patient states that his urine output has picked up. GASTROINTESTINAL: Poor appetite, not eating much. GENITOURINARY: Indwelling catheter, apparently urine output picking up as mentioned. NEUROLOGIC: Possibly a little bit of cognitive impairment chronically. MUSCULOSKELETAL: He fell and has a big laceration on his head, stapled together and this was done in [place], [place]. PHYSICAL EXAMINATION: GENERAL: This is a chronically ill appearing gentleman. He has got a little blood around his teeth. He has got the scalp laceration with the [place] about 5 inches across the right side of his top of his skull. SKIN: Otherwise, unremarkable. SKELETAL: Nonobese, well developed, well nourished. HEENT: Extraocular movements are full. Vision is intact. No scleral icterus. Hearing intact. Mucous membranes dry. NECK: Veins are flat. CHEST: Shows diminished breath sounds, slightly coarse. HEART: Distant, but regular. ABDOMEN: Soft and nontender. EXTREMITIES: Showing no edema. Peripheral pulses are diminished. NEUROLOGIC: He is moving all extremities. LABORATORY DATA: Urinalysis did show some white cells. ASSESSMENT AND PLAN: 1. Acute kidney injury. He may be recovering from his acute kidney injury and we are watching him for recovery. We will check his labs in the morning and see if he needs dialysis or not. Volume status appears to be much better than it was when he left here 9 days ago. 2. Ischemic cardiomyopathy with decreased ejection fraction. 3. Scalp laceration. 4. Obstructive uropathy with an indwelling Guzman catheter. 5. History of massive gastrointestinal bleed in the past. <ELECTRONICALLY SIGNED> By: Iain Sosa MD 02/25/17 1237 1724 0042 Iain Sosa MD /nt
--- NOTE | ~2017-02-21 | D ---
[facility] [place] [address] DISCHARGE SUMMARY Name: SANTA SOLIS Johnna Room #: 215-P [facility] IN M.R.#: [id number] Admission: 02/21/17 Attend Phys: Iain Villafuerte MD, Discharge: Date of : 37 Report #: [id number] THIS REPORT FOR: //name// CC: Iain Villafuerte [facility] COURSE: A 81-year-old male who suffered a fall and subsequently transferred here from [facility]. Under the auspice of potential urosepsis. Did have urinary tract infection. He has had some progressive failure to thrive issues. He has underlying coronary disease which has been significant. Just generalized debilitation, treated with IV antibiotics, did not require pressor support. Relatively hypotensive, borderline hypotension. The family have decided for DNR and to proceed back to [facility] living facility with hospice. He will be discharged on atorvastatin 40, levothyroxine 150, Zyrtec 10, Flonase, DuoNeb, albuterol, Flomax, Celexa, Colace, MiraLax, vitamin B12, probiotic, Pepcid. I will decrease the Lipitor dose to 20 mg a day. DISCHARGE DIAGNOSES: 1. Syncopal event. 2. Urosepsis, resolved. 3. Coronary artery disease. 4. Moderately severe ischemic cardiomyopathy, functional class 2 to 3. 5. Chronic obstructive pulmonary disease. 6. Degenerative joint disease. 7. Head laceration secondary to syncopal event. We will discharge to the assisted facility for comfort measures, DNR and hospice. By: 0820 [id number] Iain Villafuerte MD, FACC /nt
--- NOTE | ~2017-02-21 | H ---
[facility] [place] [address] HISTORY AND PHYSICAL Name: IRMASANTA Johnna Room #: 215-P [facility] IN M.R.#: [id number] Admission: 02/21/17 Attend Phys: Iain Villafuerte MD, Discharge: Date of : 37 Report #: [id number] THIS REPORT FOR: //name// CC: Iain Kc DATE OF SERVICE: 02/21/2017 HISTORY OF PRESENT ILLNESS: The patient is a well known patient of mine and had a prolonged hospitalization here recently with long-standing coronary artery disease, ischemic cardiomyopathy and acute cardiogenic and septic shock with acute renal failure and shocked liver issues that dates back to last month. Cultures were negative at that time. The urine finally grew Kaye albicans and he actually had been at a rehabilitation facility in [place], [place] and doing dialysis in [place]. He [facility] a [facility], lacerating his scalp and cutting his lip. It is not clear if this was actually a syncopal event. He was evaluated at [place] [facility], where it looks like he could have some impending sepsis with some confusion and this has been his M.O., as he has presented in the past when he gets confused ____ underlying infectious process. He is borderline hypotensive. He had been given some fluids there and then was subsequently transferred here and directly admitted to the CCU. He has been doing dialysis through the right chest catheter. His medications are fluconazole. His blood pressure medicines have been held. LABORATORY DATA: The laboratory work revealed an H and H of 8.4 and 25.4, not far off his baseline; white count was 7.9 and platelets 59,000, so he is thrombocytopenic. Creatinine 4.3, BUN 30 and potassium 3.9. Liver function tests were normal. Phosphorus 4.5. Lipase 147. Magnesium 1.9. Troponin 0.044. INR 1.3. CT of the head, laceration, some air cells, mastoid. No acute intracranial abnormality; low-density supratemporal white matter, nonspecific. HOME MEDICATIONS: Pepcid, fluconazole, albuterol, Nephrocaps, ____, Bisacodyl rectal and Lipitor. PAST MEDICAL HISTORY: Coronary artery disease with stents to left main and LAD; moderately severe ischemic cardiomyopathy, functional class 2-3; end-stage renal disease, on dialysis; hypertension; hypercholesterolemia; DJD; some failure to thrive; generalized weakness; thrombocytopenia; anemia and recurrent urinary tract infections, Kaye albicans in his urine. FAMILY HISTORY: Negative for premature coronary disease. SOCIAL HISTORY: He is , has 3 children. He is retired. No alcohol or tobacco. He lives in [place], but currently in a rehabilitation facility in [place], [place]. [facility] [address] [place] [address] HISTORY AND PHYSICAL Name: SANTA KC Room #: 215[facility]P [facility] [id number] Admission: 02/21/17 Attend Phys: Iain Villafuerte MD, Discharge: Date of : 39 Report #: [id number] PHYSICAL EXAMINATION: GENERAL: He seems to be alert tonight. VITAL SIGNS: Blood pressure 94/56 and pulse 80s. HEENT: Eyes show arcus senilis. Pharynx is slightly dry. Mucous membranes, there is some dried blood along his lip line from a lip laceration from the fall. There is also a scalp laceration which has montana. No significant hematoma. NECK: Shows preserved upstrokes. LUNGS: Prolonged expiratory phase, but clear. CARDIAC EXAMINATION: Regular rate and rhythm, S1, S2. Systolic murmur is noted faintly. ABDOMEN: Soft. No HSM or abdominal bruit. EXTREMITIES: Reveal trace of edema. His pulse is intact. There is a dialysis catheter in the right upper extremity. SKIN: Warm and dry. There is no skin breakdown or ulcer. MUSCULOSKELETAL: Generalized arthritic changes. I did not ambulate him. ASSESSMENT: 1. Fall with scalp laceration. 2. Potential for possible impending sepsis with mental status change and questionable U/A with possible urinary tract infection. 3. Anemia. 4. Ischemic cardiomyopathy, moderately severe, functional class 2. 5. End-stage renal disease, on dialysis. 6. Degenerative joint disease. 7. Resolved septic shock and shocked liver, 01/28/2017. 8. Depression. RECOMMENDATIONS AND PLAN: I appreciate Infectious Disease and Renal input. Antibiotics have been initiated. He is hemodynamically stable, currently not requiring full sepsis protocol. Borderline hypotension, holding cardiovascular drugs. Increase nutrition as tolerated. Repeat a.m. lab. His cardiovascular status appears to be fairly stable. I do not perceive any significant demise here, perhaps a slight touch of some volume overload which can be adjusted at dialysis, depending on how he does with his blood pressure. Apparently, we will continue to follow with you. No indication to repeat an echo at this point. <ELECTRONICALLY SIGNED> By: Iain Villafuerte MD, FACC 02/23/17 0844 01 [id number] Iain Villafuerte MD, FACC /nt
[~2017-02-21 11:23] MED LIST changes: +ALBUTEROL2.5 MG/31 INH; +BISACODYL SUPP10 MG RECTAL; +CELEXA20 MG PO; +COLACE100 MG PO; +DUONEB 2.5-0.5 M3 ML INH; +FLOMAX0.4 MG PO; +FLONASE 0.05%50 MCG NASAL; +FLUCONAZOLE150 MG PO; +LEVOXYL150 MCG PO; +MIRALAX17 GM PO; +NITROSTAT0.4 MG SUBLING; +NYSTATIN15 G1 TOP; +PROBIOTIC1 EAC2 PO; +VIRT-VITE PLUS T5 MG PO; +ZYRTEC10 M2 PO
[2017-02-21 12:09] VITALS: BP 115/76
[2017-02-21 15:35] LABS: URINE BILIRUBIN NEGATIVE (Negative); URINE BLOOD 1+ (Negative); URINE COLOR YELLOW; URINE GLUCOSE-RANDOM* NEGATIVE (Negative); URINE KETONES NEGATIVE (Negative); URINE PROTEIN (DIPSTICK) 2+ (Negative)
[2017-02-21 15:36] LABS: URINE LEUKOCYTES-REFLEX 2+ (Negative)
[2017-02-21] MEDS ORDERED: PEPCID20 MG PO (15:38)
[2017-02-21 15:44] LABS: COARSE GRANULAR CASTS 0-3 Few /LPF (None Seen); HYALINE CASTS 0-3 Few /LPF (None Seen); SQUAMOUS 0-3 Few /LPF (0-3)
[2017-02-21 15:45] LABS: CRYSTALS None Seen /LPF (None Seen); URINE RBC 3-10 Few /HPF (0-2); YEAST-REFLEX Present (None Seen)
[2017-02-21 16:00] VITALS: BP 112/71
[2017-02-21 19:32] VITALS: BP 94/57
[2017-02-21 23:26] VITALS: BP 113/63
[2017-02-22 03:37] VITALS: BP 106/62
[2017-02-22 03:51] LABS: HEMATOCRIT 25.7 % (42.0-52.0); HEMOGLOBIN 8.5 gm/dL (14.0-18.0); MCH 32.4 pg (26.0-34.0); MCHC 33.1 g/dL (28.0-37.0); MCV 97.9 fL (80.0-100.0); RBC 2.63 mil/uL (4.50-6.00); RDW 20.5 % (10.5-14.5); WBC 6.4 thou/uL (4.0-11.0)
[2017-02-22 04:06] LABS: ALBUMIN 2.7 g/dL (3.4-5.0); CALCIUM 8.5 mg/dL (8.5-10.1); CREATININE 5.8 mg/dL (0.7-1.3); POTASSIUM 3.6 mmol/L (3.5-5.1); TOTAL BILIRUBIN 2.4 mg/dL (<0.1-1.0); TOTAL PROTEIN 6.5 g/dL (6.4-8.2)
[2017-02-22 07:29] VITALS: BP 101/67
[2017-02-22 11:15] VITALS: BP 109/67
[2017-02-22 15:14] VITALS: BP 97/61
[2017-02-22 20:08] VITALS: BP 107/63
[2017-02-23 03:32] VITALS: BP 103/61
[2017-02-23 04:02] LABS: HEMOGLOBIN 8.7 gm/dL (14.0-18.0); MCH 32.5 pg (26.0-34.0); MCHC 33.3 g/dL (28.0-37.0); MCV 97.5 fL (80.0-100.0); RBC 2.67 mil/uL (4.50-6.00); RDW 20.8 % (10.5-14.5); WBC 6.7 thou/uL (4.0-11.0)
[2017-02-23 04:17] LABS: ALBUMIN 2.5 g/dL (3.4-5.0); CALCIUM 8.5 mg/dL (8.5-10.1); CREATININE 6.4 mg/dL (0.7-1.3); PHOSPHORUS 5.4 mg/dL (2.5-4.9); POTASSIUM 3.4 mmol/L (3.5-5.1)
[2017-02-23 07:29] VITALS: BP 106/69
[2017-02-23 11:45] VITALS: BP 102/61
[2017-02-23 15:59] VITALS: BP 109/76
[2017-02-23 19:20] VITALS: BP 132/107
[2017-02-23 23:45] VITALS: BP 106/64
[2017-02-24 02:59] LABS: HEMOGLOBIN 8.6 gm/dL (14.0-18.0); MCH 32.7 pg (26.0-34.0); MCHC 33.1 g/dL (28.0-37.0); MCV 98.7 fL (80.0-100.0); RBC 2.64 mil/uL (4.50-6.00); RDW 20.7 % (10.5-14.5); WBC 5.9 thou/uL (4.0-11.0)
[2017-02-24 03:14] LABS: ALBUMIN 2.5 g/dL (3.4-5.0); CALCIUM 8.6 mg/dL (8.5-10.1); PHOSPHORUS 4.1 mg/dL (2.5-4.9); POTASSIUM 3.9 mmol/L (3.5-5.1)
[2017-02-24 03:26] VITALS: BP 114/73
[2017-02-24 08:00] VITALS: BP 100/61
[2017-02-24 12:00] VITALS: BP 97/59
[2017-02-24 16:00] VITALS: BP 96/61
[2017-02-24 19:27] VITALS: BP 102/66
[2017-02-25 03:31] VITALS: BP 108/69
[2017-02-25 07:45] VITALS: BP 102/69
[2017-02-25] MEDS ORDERED: ATORVASTATIN CA40 MG PO (08:19)
[2017-02-25 13:35] VITALS: BP 86/55
== END 2017-02-25 14:15 | disposition hospice, inpatient (51) | DRG 871 ==
LOC: 2N 11:23
PROVIDERS: Hospitalist; Internal Medicine Cardiovascular Disease
PROC: 5A1D70Z Performance of Urinary Filtration, Intermittent, Less than 6 Hours Per Day (ICD-10-PCS; principal; 2017-02-23)
DX: A41.9 Sepsis, unspecified organism (principal); N18.6 End stage renal disease; N17.9 Acute kidney failure, unspecified; I12.0 Hypertensive chronic kidney disease with stage 5 chronic kidney disease or end stage renal disease; N39.0 Urinary tract infection, site not specified; Z66 Do not resuscitate; S01.01XA Laceration without foreign body of scalp, initial encounter; I25.5 Ischemic cardiomyopathy; N13.9 Obstructive and reflux uropathy, unspecified; I25.10 Atherosclerotic heart disease of native coronary artery without angina pectoris; E78.00 Pure hypercholesterolemia, unspecified; M19.90 Unspecified osteoarthritis, unspecified site; D64.9 Anemia, unspecified; F32.9 Major depressive disorder, single episode, unspecified; R62.7 Adult failure to thrive; J44.9 Chronic obstructive pulmonary disease, unspecified; D69.6 Thrombocytopenia, unspecified; W18.39XA Other fall on same level, initial encounter; Z98.41 Cataract extraction status, right eye; Z98.42 Cataract extraction status, left eye; Z95.5 Presence of coronary angioplasty implant and graft; Z99.2 Dependence on renal dialysis; Y93.89 Activity, other specified; Y92.098 Other place in other non-institutional residence as the place of occurrence of the external cause; Y99.8 Other external cause status; Z95.0 Presence of cardiac pacemaker
CPT/HCPCS: 10081; 32100